=== PATIENT | male | born 1970 | race Caucasian/White ===

== ENCOUNTER 2018-12-02 10:22 | Emergency (ER) | payer BC ==
--- OUTSIDE RECORDS SUMMARY | 2018-12-02 10:25 | XMS REPORT ---
:1970 [facility] [address] [place] [address] Dr. Hagan [address] [place] [id number] Care Team Providers Name Role Phone Unavailable Unavailable Unavailable Problems This patient has no known problems. Allergies, Adverse Reactions, Alerts This patient has no known allergies or adverse reactions. Medications This patient has no known medications.
[2018-12-02] MEDS ORDERED: NS 0.9% IV SCH (11:00)
[2018-12-02] MEDS ORDERED: PHENYLEPHRINE HCL IV SCH (11:00)
[2018-12-02 12:01] LABS: Absolute Lymphocytes (CBC) 2.3 K/uL (0.7-4.9); Absolute Monocytes 0.5 K/uL (0.1-1.3); Absolute Neutrophil 4.4 K/uL (1.8-8.0); Basophils % 0.3 % (0-1.3); Eosinophils % 1.8 % (0-4.4); Hematocrit 47.1 % (39.6-49.0); Lymphocytes % 31.5 % (15.3-44.8); MPV 9.4 fL (7.6-11.3); Monocytes % 6.6 % (3.3-12.3); RBC Red Blood Cell Count 5.21 M/uL (4.33-5.43)
--- NOTE | 2018-12-02 12:11 | ER ---
Nurse's Notes [facility] Name: Robin Raza Age: 48 yrs Sex: Male : 1970 Arrival Date: 12/02/2018 Time: 10:23 Bed 16 Private MD: Meliton Chavira T Diagnosis: Priapism, unspecified Presentation: 12/02 10:25 Presenting complaint: Patient states: Sent by Dr. Gallegos for evaluation and treatment of ss priapism. Pt reports Dr. Gallegos believe this may be an adverse reaction to new medications patient began taking last night, Latuda and Tamsulosin. Transition of care: patient was not received from another setting of care. Onset of symptoms was December 01, 2018. Risk Assessment: Do you want to hurt yourself or someone else? Patient reports no desire to harm self or others. Initial Sepsis Screen: Does the patient meet any 2 criteria? No. Patient's initial sepsis screen is negative. Does the patient have a suspected source of infection? No. Patient's initial sepsis screen is negative. Care prior to arrival: None. 10:25 Method Of Arrival: Ambulatory ss 10:25 Acuity: YASMEEN 2 ss Historical: - PMHx: 10:34 Gout; High Cholesterol; ss - PSHx: 10:34 I\T\D; ss - Immunization history:: Adult Immunizations up to date. - Social history:: Smoking status: Patient/guardian denies using tobacco. - Ebola Screening: : Patient denies exposure to infectious person Patient denies travel to an Ebola-affected area in the 21 days before illness onset. Screenin:26 Abuse screen: Denies threats or abuse. Nutritional screening: No deficits noted. rb1 Tuberculosis screening: No symptoms or risk factors identified. Fall Risk None identified. Assessment: 10:26 General: Appears in no apparent distress. comfortable, Behavior is calm, cooperative. rb1 General: Pt. took new medication and now has an erection that will not go away. Saw the doctor and had some of the blood drained but continues to have an erection.. Pain: Complains of pain in penial Pain currently is 3 out of 10 on a pain scale. Neuro: Level of Consciousness is awake, alert, obeys commands, Oriented to person, place, time, situation. Cardiovascular: Capillary refill < 3 seconds is brisk in bilateral fingers. Respiratory: Airway is patent Respiratory effort is even, unlabored, Respiratory pattern is regular, symmetrical. GI: No signs and/or symptoms were reported involving the gastrointestinal system. : No signs and/or symptoms were reported regarding the genitourinary system. Derm: Skin is pink, warm \T\ dry. 11:25 Reassessment: Patient appears in no apparent distress at this time. No changes from [facility] previously documented assessment. 12:25 Reassessment: Patient appears in no apparent distress at this time. Patient and/or rb1 family updated on plan of care and expected duration. Pain level reassessed. Patient is alert, oriented x 3, equal unlabored respirations, skin warm/dry/pink. Patient states feeling better. Vital Signs: 10:34 Resp 17; Weight 117.93 kg; Height 5 ft. 8 in. (172.72 cm); Pain 4/10; ss 10:35 BP 124 / 84; Pulse 78; Resp 17; Temp 98.1(O); Pulse Ox 98% on R/A; Pain 4/10; rb1 11:30 BP 122 / 81; Pulse 80; Resp 16; Temp 98.3; Pulse Ox 98% on R/A; Pain 3/10; rb1 12:30 BP 125 / 97; Pulse 76; Resp 17; Temp 98.4(O); Pulse Ox 100% on R/A; Pain 2/10; rb1 10:34 Body Mass Index 39.53 (117.93 kg, 172.72 cm) ss ED Course: 10:23 Patient arrived in ED. ag5 10:25 Meliton Chavira MD is Private Physician. ag5 10:26 Patient has correct armband on for positive identification. Placed in gown. Bed in low rb1 position. Call light in reach. Side rails up X 1. Pulse ox on. NIBP on. Warm blanket given. 10:27 Kizzy Nunez, FELY is Primary Nurse. rb1 10:28 [facility] 10:28 Jeremy Tabor MD is Attending Physician. [facility] 10:34 Triage completed. ss 10:34 Arm band placed on right wrist. ss 11:35 Urine collected: clean catch specimen, sonai colored. Inserted saline lock: 22 gauge in kj1 right antecubital area, using aseptic technique. 11:36 Initial lab(s) drawn, by ED staff, sent to lab. kj1 12:05 Angie Gallegos MD is Referral Physician. [facility] 12:50 No provider procedures requiring assistance completed. IV discontinued, intact, rb1 bleeding controlled, No redness/swelling at site. Pressure dressing applied. Administered Medications: No medications were administered Outcome: 12:10 Discharge ordered by MD. [facility] 12:50 Discharged to home ambulatory. rb1 12:50 Condition: stable 12:50 Discharge instructions given to patient, Instructed on discharge instructions, follow up and referral plans. Demonstrated understanding of instructions, follow-up care, Prescriptions given X none 12:51 Patient left the ED. rb1 Signatures: Elian Blevins PA PA jmm Smirch, Shelby, RN RN Kizzy John, FELY RN rb1 Tim Irvin Kandis kj1
--- NOTE | 2018-12-02 12:11 | EDPHYS ---
Physician Documentation [facility] Name: Robin Raza Age: 48 yrs Sex: Male : 1970 Arrival Date: 12/02/2018 Time: 10:23 Bed 16 Private MD: Mleiton Chavira T ED Physician Jeremy Tabor HPI: 12/02 10:32 This 48 yrs old Male presents to ER via Ambulatory with complaints of painful jmm erection. 10:32 Onset: The symptoms/episode began/occurred last night. Modifying factors: The symptoms jmm are alleviated by nothing, the symptoms are aggravated by nothing. Associated signs and symptoms: Pertinent negatives: abdominal pain, dysuria, fever. This is a 48 year old male with a history of HLP, gout that presents to the ED with complaints of painful erection beginning last night. Patient takes latuda, flomax and uloric. Patient was at Dr. White office and has had approx 70 cc of blood removed. Patient states having increased relief over the past 30 minutes. . Historical: - PMHx: 10:34 Gout; High Cholesterol; ss - PSHx: 10:34 I\T\D; ss - Immunization history:: Adult Immunizations up to date. - Social history:: Smoking status: Patient/guardian denies using tobacco. - Ebola Screening: : Patient denies exposure to infectious person Patient denies travel to an Ebola-affected area in the 21 days before illness onset. ROS: 10:32 Constitutional: Negative for fever, chills, and weight loss, Cardiovascular: Negative jmm for chest pain, palpitations, and edema, Respiratory: Negative for shortness of breath, cough, wheezing, and pleuritic chest pain, Abdomen/GI: Negative for abdominal pain, nausea, vomiting, diarrhea, and constipation. 10:32 : Positive for penile pain. 10:32 All other systems are negative. Exam: 10:32 Constitutional: This is a well developed, well nourished patient who is awake, alert, jmm and in no acute distress. Head/Face: atraumatic. Eyes: EOMI, no conjunctival erythema appreciated ENT: Moist Mucus Membranes Neck: Trachea midline, Supple Chest/axilla: Normal chest wall appearance and motion. Cardiovascular: Regular rate and rhythm. No edema appreciated Respiratory: Normal respirations, no respiratory distress appreciated Abdomen/GI: Non distended, soft Back: Normal ROM 10:32 : exam appears normal. I do not appreciated an erection. Penis is flaccid. Non tender to palpation. No active bleeding appreciated from puncture sites. . 10:32 Musculoskeletal/extremity: ROM: intact in all extremities. 10:32 Skin: Appearance: Color: normal in color. 10:32 Neuro: Orientation: is normal, Mentation: is normal, Memory: is normal. 10:32 Psych: Behavior/mood is pleasant, cooperative. Vital Signs: 10:34 Resp 17; Weight 117.93 kg; Height 5 ft. 8 in. (172.72 cm); Pain 4/10; ss 10:35 BP 124 / 84; Pulse 78; Resp 17; Temp 98.1(O); Pulse Ox 98% on R/A; Pain 4/10; rb1 11:30 BP 122 / 81; Pulse 80; Resp 16; Temp 98.3; Pulse Ox 98% on R/A; Pain 3/10; rb1 12:30 BP 125 / 97; Pulse 76; Resp 17; Temp 98.4(O); Pulse Ox 100% on R/A; Pain 2/10; rb1 10:34 Body Mass Index 39.53 (117.93 kg, 172.72 cm) ss MDM: 10:31 Patient medically screened. [facility] 11:47 Data reviewed: vital signs, nurses notes. Counseling: I had a detailed discussion with yue the patient and/or guardian regarding: the historical points, exam findings, and any diagnostic results supporting the discharge/admit diagnosis, the need for outpatient follow up, to return to the emergency department if symptoms worsen or persist or if there are any questions or concerns that arise at home. ED course: I discussed the patient with Dr. Gallegos whom had initially advised administer phenyephrine diluted 1/10 in NS. After reevaluation I discussed the patient with Dr. Gallegos whom recommended CBC and toxic panel. Will follow up with patient in clinic. Patient is currently non toxic in appearance and pain free in the ED. With no acitve bleeding appreciated to the penis. . 12/02 10:56 Order name: CBC with Diff; Complete Time: 12:05 [facility] 12/02 10:56 Order name: Urine Drug Screen; Complete Time: 12:41 [facility] 12/02 11:51 Order name: Urine Dipstick--Ancillary (enter results) ss Administered Medications: No medications were administered Disposition: 15:29 Co-signature as Attending Physician, Elian GARCIA I agree with the assessment and kdr plan of care. PA/AMMONIUM NITRATE NEUTRALIZER's history reviewed, patient interviewed, and examined. Disposition: 12/02/18 12:10 Discharged to Home. Impression: Priapism, unspecified. - Condition is Stable. - Discharge Instructions: Priapism. - Medication Reconciliation Form, Thank You Letter, Antibiotic Education, Prescription Opioid Use form. - Follow up: Angie Gallegos MD; When: 2 - 3 days; Reason: Recheck today's complaints, Continuance of care, Re-evaluation by your physician. Signatures: Dispatcher [employer] EDMS Jeremy Tabor MD MD kdr Mickail, Joel, PA PA jmm Smirch, Shelby, FELY RN Kizzy John, RN RN rb1 Corrections: (The following items were deleted from the chart) 12:51 12:10 12/02/2018 12:10 Discharged to Home. Impression: Priapism, unspecified. Condition rb1 is Stable. Forms are Medication Reconciliation Form, Thank You Letter, Antibiotic Education, Prescription Opioid Use. Follow up: Angie Gallegos; When: 2 - 3 days; Reason: Recheck today's complaints, Continuance of care, Re-evaluation by your physician. yue
[2018-12-02 12:29] LABS: Barbiturates NEGATIVE (NEGATIVE); Benzodiazepines NEGATIVE (NEGATIVE); Cocaine NEGATIVE (NEGATIVE); METHAMPHETAM NEGATIVE (NEGATIVE); Methadone NEGATIVE (NEGATIVE); Opiates NEGATIVE (NEGATIVE); Phencyclidine NEGATIVE (NEGATIVE); THC Cannibis NEGATIVE (NEGATIVE)
[2018-12-02 13:57] LABS: Urine Blood NEGATIVE (NEG); Urine Glucose NEGATIVE (NEG); Urine Protein NEGATIVE (NEG); Urine Specific Gravity 1.015 (1.005-1.030); Urine pH 5.5 (5.0-7.0)
== END 2018-12-02 12:51 | disposition home or self-care (01) ==
LOC: ER 10:22
DX: N48.30 Priapism, unspecified (principal); M10.9 Gout, unspecified; E78.00 Pure hypercholesterolemia, unspecified
CPT/HCPCS: 36415; 80307; 81003; 85025; 99284; J2370